=== PATIENT | female | born 1985 | race Caucasian/White ===

== ENCOUNTER → 2021-10-03 | Outpatient (CLI) | payer BC ==
--- NOTE | 2021-10-03 17:01 | RAD ---
EXAM: Pelvic sonogram. HISTORY: Ovarian follicle monitoring. TECHNIQUE: Transvaginal sonographic imaging of the pelvis was performed. COMPARISON: 03/27/2021. FINDINGS: The uterus measures 7.7 x 4.6 x 3.8 cm. The endometrial stripe measures 6 mm in thickness. The ovaries are normal in size. There is a dominant left ovarian follicle measuring 1.5 x 1.5 x 1.3 c m. There are additional subcentimeter ovarian follicles. The uterus is retroverted. There is no pelvi c free fluid. IMPRESSION: 1.5 cm dominant left ovarian follicle. Electronically signed by: Iona Cabral MD (10/03/2021 4:58 PM) [id number]
== END ==
LOC: US 15:53
PROVIDERS: ATTEND Obstetrics & Gynecology
DX: N83.02 Follicular cyst of left ovary (principal)
CPT/HCPCS: 76830

== ENCOUNTER → 2021-10-06 | Outpatient (CLI) | payer BC ==
--- NOTE | 2021-10-06 17:29 | RAD ---
EXAM: Pelvic ultrasound HISTORY: Ovarian cyst. COMPARISON: 10/03/2021. FINDINGS: Sonographic evaluation of the pelvis was performed transvaginally. The uterus is retroverted and measures 7.4 x 4.7 x 3.9 cm. The endometrial stripe measures 9 mm. No m asses are identified. There is no significant free fluid. The right ovary measures 2.8 x 2.6 x 2.2 cm. The left ovary measures 4.2 x 3.3 x 2.2 cm. A dominant l eft ovarian follicle measures 2.4 x 2.0 cm. There is normal Doppler flow bilaterally. There are no gifford spicious lesions. IMPRESSION: 1. 2.4 x 2.0 cm dominant left ovarian follicle. No abnormalities identified. Electronically signed by: Daisha Dykes MD (10/06/2021 5:27 PM) [id number]
== END ==
LOC: US 15:54 → EDUNIT# 16:00
PROVIDERS: ATTEND Obstetrics & Gynecology
DX: N83.02 Follicular cyst of left ovary (principal); N85.4 Malposition of uterus
CPT/HCPCS: 76830

== ENCOUNTER → 2021-10-08 | Outpatient (CLI) | payer BC ==
--- NOTE | 2021-10-08 17:08 | RAD ---
EXAM: Pelvic sonogram. HISTORY: Follicular cyst. TECHNIQUE: Transabdominal and transvaginal sonographic imaging of the pelvis was performed. COMPARISON: 10/06/2021. FINDINGS: The uterus is retroverted and measures 7.5 x 4.9 x 3.8 cm. The endometrial stripe measures 6 mm thickness. The right ovary measures 2.8 x 3.1 x 1.3 cm. The left ovary measures 4.2 x 3.0 x 2.6 cm. There is a 2.0 x 2.0 x 1.5 cm dominant left ovarian follicle/follicular cyst. There are additiona l small bilateral ovarian antral follicles. There is normal blood flow within both ovaries. There is a small amount of free fluid containing debris within the left adnexa and cul-de-sac. IMPRESSION: 1. 2.0 cm dominant left ovarian follicle/follicular cyst. The previously demonstrated follicle/follic ular cyst measured 2.4 cm in maximum dimension. 2. Small amount of free fluid containing debris within the left adnexa and cul-de-sac. This is increa sed compared to the prior exam. 3. Retroverted uterus. Normal endometrial stripe thickness. Electronically signed by: Iona Cabral MD (10/08/2021 5:06 PM) [id number]
== END ==
LOC: US 15:57 → EDUNIT# 16:00
PROVIDERS: ATTEND Obstetrics & Gynecology
DX: N85.4 Malposition of uterus (principal); N83.02 Follicular cyst of left ovary; N83.01 Follicular cyst of right ovary
CPT/HCPCS: 76830

== ENCOUNTER → 2021-10-13 | Outpatient (CLI) | payer BC ==
--- NOTE | 2021-10-13 09:34 | RAD ---
EXAM: ULTRASOUND PELVIS INDICATION: Ovarian cyst, negative hCG COMPARISON: October 08, 2021 TECHNIQUE: Transvaginal sonography was performed. FINDINGS: The uterus appears normal. The uterus measures 7.5 x 5.2 x 3.9 cm. The endometrium is homogeneous luis miguel sures 8.2 mm in thickness. The right ovary appears normal with normal blood flow. The right ovary measures 2.6 x 1.5 x 1.6 cm. The left ovary measures 3.4 x 2.7 x 2.0 cm. There is normal left ovarian blood flow. There is a debri s-filled cystic lesion on the left that measures 1.7 x 1.6 x 1.8 cm. There is no free fluid. IMPRESSION: Small resolving hemorrhagic cyst on the left. No suspicious findings. IMPRESSION: Electronically signed by: Yariel Francis III, MD (10/13/2021 9:32 AM) [facility]US[facility]ESSIE
== END ==
LOC: EDUNIT# 08:00 → US 08:03
PROVIDERS: ATTEND Obstetrics & Gynecology
DX: N83.02 Follicular cyst of left ovary (principal)
CPT/HCPCS: 76830